=== PATIENT | female | born 1935 | race Caucasian/White ===

== ENCOUNTER → 2017-02-01 | Outpatient (CLI) | payer MEDICARE, OTHER | END | disposition home or self-care (01) | LOC: RD 10:04 | DX: Z01.818 Encounter for other preprocedural examination (principal) ==

== ENCOUNTER 2020-07-21 16:08 | Inpatient (IN) | payer OTHER, MEDICARE ==
[~2020-07-21] VITALS: Ht 167.6 cm; Wt 71.2 kg
[2020-07-21 16:26] VITALS: Ht 167.6 cm; Wt 71.2 kg
[2020-07-21 17:21] LABS: BASOPHIL % 0.3 % (0.2-1.3); PLATELET COUNT 168 x10^3mcL (179-408); RED CELL DISTRIBUTION WIDTH 13.4 % (12.3-17.7)
[2020-07-21 18:09] LABS: CALCIUM 9.3 mg/dL (8.5-10.1); CARBON DIOXIDE 24.3 mmol/L (21-32); CHLORIDE SERUM 103 mmol/L (98-107); GLUCOSE SERUM 97 mg/dL (74-106); POTASSIUM SERUM 4.2 mmol/L (3.5-5.1); SODIUM SERUM 138 mmol/L (136-145)
[2020-07-21 18:14] LABS: ALBUMIN 3.8 g/dL (3.4-5.0); ALKALINE PHOSPHATASE 52 U/L (46-116); ALT/SGPT 25 U/L (14-59); AST/SGOT 32 U/L (15-37); BILIRUBIN TOTAL 0.3 mg/dL (0.20-1.00); TOTAL PROTEIN, SERUM 7.9 g/dL (6.4-8.2)
[2020-07-21 23:29] VITALS: BP 165/89
[2020-07-22 05:25] VITALS: BP 137/56
[2020-07-22 06:54] LABS: BASOPHIL % 0.6 % (0.2-1.3); PLATELET COUNT 153 x10^3mcL (179-408); RED CELL DISTRIBUTION WIDTH 13.3 % (12.3-17.7)
[2020-07-22 07:10] LABS: ALBUMIN 3.3 g/dL (3.4-5.0); ALKALINE PHOSPHATASE 40 U/L (46-116); ALT/SGPT 21 U/L (14-59); AST/SGOT 28 U/L (15-37); BILIRUBIN TOTAL 0.4 mg/dL (0.20-1.00); CHLORIDE SERUM 108 mmol/L (98-107); CHOLESTEROL 129 mg/dL (<200); CHOLESTEROL/HDL RATIO 3.5; CREATININE SERUM 0.9 mg/dL (0.6-1.0); GLUCOSE SERUM 88 mg/dL (74-106); HDL CHOLESTEROL 37 mg/dL (40-60); MAGNESIUM 2.2 mg/dL (1.8-2.4); POTASSIUM SERUM 4.1 mmol/L (3.5-5.1); SODIUM SERUM 142 mmol/L (136-145); TOTAL PROTEIN, SERUM 6.7 g/dL (6.4-8.2); TRIGLYCERIDES 150 mg/dL (<150)
[2020-07-22 08:27] VITALS: BP 165/61
[2020-07-22] MEDS ORDERED: ARICEPT10 MG PO (10:31)
[2020-07-22] MEDS ORDERED: LEVO-T25 MCG PO (10:32)
[2020-07-22] MEDS ORDERED: HORIZANT300 MG PO (10:32)
[2020-07-22] MEDS ORDERED: DDAVP0.1 MG PO (10:33)
[2020-07-22 12:46] VITALS: BP 136/51
[2020-07-22 15:58] LABS: microscopic required? NO
[2020-07-22 16:09] LABS: urine erythrocyte NEGATIVE (NEGATIVE)
[2020-07-22 16:31] VITALS: BP 139/51
[2020-07-22 21:03] VITALS: BP 147/55
[2020-07-23 05:05] VITALS: BP 130/52
[2020-07-23 06:25] LABS: BASOPHIL % 0.5 % (0.2-1.3); PLATELET COUNT 149 x10^3mcL (179-408); RED CELL DISTRIBUTION WIDTH 13.1 % (12.3-17.7)
[2020-07-23 06:37] LABS: ALKALINE PHOSPHATASE 41 U/L (46-116); ALT/SGPT 21 U/L (14-59); AST/SGOT 28 U/L (15-37); CALCIUM 9.1 mg/dL (8.5-10.1); CARBON DIOXIDE 25.6 mmol/L (21-32); CHLORIDE SERUM 109 mmol/L (98-107); GLUCOSE SERUM 93 mg/dL (74-106); MAGNESIUM 2.1 mg/dL (1.8-2.4); POTASSIUM SERUM 4.1 mmol/L (3.5-5.1); SODIUM SERUM 142 mmol/L (136-145); TOTAL PROTEIN, SERUM 7.1 g/dL (6.4-8.2)
[2020-07-23 06:54] LABS: ALBUMIN 3.2 g/dL (3.4-5.0)
[2020-07-23 08:15] VITALS: BP 131/59
[2020-07-23] MEDS ORDERED: DITROPAN XL5 MG PO (11:07)
[2020-07-23 12:11] VITALS: BP 143/53
[2020-07-23 13:05] VITALS: BP 143/53
== END 2020-07-23 15:10 | disposition home health service (06) | DRG 384 ==
LOC: ED 16:08 → DU 20:47 → MU 20:47 → DU 20:47
PROVIDERS: Hospitalist; Student in an Organized Health Care Education/Training Program; ADMIT Hospitalist; ATTEND Hospitalist
PROC: 0HQ0XZZ Repair Scalp Skin, External Approach (ICD-10-PCS; principal; 2020-07-21)
DX: S01.01XA Laceration without foreign body of scalp, initial encounter (principal); I48.91 Unspecified atrial fibrillation; E78.5 Hyperlipidemia, unspecified; I10 Essential (primary) hypertension; Z20.822 Contact with and (suspected) exposure to COVID-19; W18.39XA Other fall on same level, initial encounter; Y93.89 Activity, other specified; Y92.89 Other specified places as the place of occurrence of the external cause; Y99.8 Other external cause status
CPT/HCPCS: 82962; 83880; 97116-GP; 97530-GP; G0378; J2001; J7030; J8597